=== PATIENT | female | born 1990 | race Two or more races ===

== ENCOUNTER 2017-11-25 14:35 | Emergency (ER) | payer SELFPAY ==
[~2017-11-25] VITALS: Ht 170.2 cm; Wt 71.2 kg
[2017-11-25 14:40] VITALS: BP 128/77
== END 2017-11-25 15:21 | disposition home or self-care (01) ==
LOC: ER 14:38
DX: O26.892 Other specified pregnancy related conditions, second trimester (principal); R42 Dizziness and giddiness; Z3A.26 26 weeks gestation of pregnancy
CPT/HCPCS: A4606; Z7610